=== PATIENT | male | born 1955 | race Caucasian/White ===

== ENCOUNTER 2019-09-09 05:11 | Inpatient (IN) ==
[2019-08-22 13:03] LABS: HEMATOCRIT 43.4 % (42.0-52.0); HEMOGLOBIN 15.2 g/dL (14.0-18.0); MCH 30.6 PG (27-31); MCV 87.5 FL (81-99); MPV 10.3 FL (7.4-10.4); RBC 4.96 XMIL (4.7-6.1); RDW 13.3 % (11.5-14.5); WBC 6.53 X1000 (4.8-10.8)
--- NOTE | 2019-08-22 13:05 | EKG Report ---
Test Performed on : 08/22/2019 12:49:41 PM Test Reason : PAT Blood Pressure : / mmHG Vent. Rate : 069 BPM Atrial Rate : 069 BPM P-R Int : 168 ms QRS Dur : 108 ms QT Int : 432 ms P-R-T Axes : 069 052 063 degrees QTc Int : 462 ms Normal sinus rhythm. Normal ECG When compared with ECG of 30-JAN-2018 13:46, premature ventricular complexes. are no longer present Confirmed by Jackson MARTINI, Abhinav Childers ([id number]) on 08/26/2019 9:25:30 AM
[2019-08-22 13:53] LABS: AGAP 11; BUN 17 mg/dL (8-22); CALCIUM 9.4 mg/dL (8.8-10.2); CHLORIDE 99 mmol/L (98-107); COSMO 290; CREATININE 1.1 mg/dL (0.7-1.2); ESTIMATED GFR > 60; GLUCOSE 296 mg/dL (70-104); POTASSIUM 4.5 mmol/L (3.5-5.1); SODIUM 139 mmol/L (136-145); TCO2 29 mmol/L (25-35)
[2019-09-09] MEDS ORDERED: KEFZOL 1 GM/D5W 2 GM/100 ML IVPB ONE (05:45)
[2019-09-09] MEDS ORDERED: LR 1,000 ML ONE (05:45)
[2019-09-09] MEDS ORDERED: FENTANYL ONE (06:18)
[2019-09-09] MEDS ORDERED: VERSED ONE (06:18)
[2019-09-09] MEDS ORDERED: DIPRIVAN 1% ONE (06:18)
[2019-09-09] MEDS ORDERED: KEFZOL ONE (06:37)
[2019-09-09] MEDS ORDERED: HEPARIN ONE ×2 (06:37→06:38)
[2019-09-09] MEDS ORDERED: MARCAINE 0.25% PF ONE (06:38)
[2019-09-09] MEDS ORDERED: NS 2,000 ML ONE (06:38)
[2019-09-09] MEDS ORDERED: REGLAN ONE (06:41)
[2019-09-09] MEDS ORDERED: PEPCID ONE (06:41)
[2019-09-09] MEDS ORDERED: NITROGLYCERIN ONE (06:42)
[2019-09-09] MEDS ORDERED: NITROGLYCERIN 50 MG/D5W 50 MG/250 ML IV.SOLN ONE (06:45)
[2019-09-09] MEDS ORDERED: CARDENE 40 MG/NS 40 MG/200 ML PIGGYBACK IV ONE (07:00)
[2019-09-09] MEDS ORDERED: NEO-SYNEPHRINE ONE (08:07)
[2019-09-09] MEDS ORDERED: XYLOCAINE-MPF 2% ONE (08:07)
[2019-09-09] MEDS ORDERED: QUELICIN (DOSE) ONE (08:07)
[2019-09-09] MEDS ORDERED: HEPARIN (DOSE) ONE (08:07)
[2019-09-09] MEDS ORDERED: ZEMURON ONE (08:07)
[2019-09-09] MEDS ORDERED: ROBINUL ONE (08:07)
[2019-09-09] MEDS ORDERED: OFIRMEV 1000 MG/ISOTONIC SOLN 1,000 MG/100 ML BOTTLE ONE (08:07)
[2019-09-09] MEDS ORDERED: SODIUM CHLORIDE 0.9% 10 ML ONE (08:07)
[2019-09-09] MEDS ORDERED: ZOFRAN ONE (08:07)
[2019-09-09] MEDS ORDERED: NEOSTIGMINE ONE (08:08)
[2019-09-09] MEDS ORDERED: LABETALOL (DOSE) ONE ×2 (08:40→09:23)
[2019-09-09 09:31] LABS: URINE SOURCE CATH
[2019-09-09 09:36] LABS: BILIRUBIN URINE NEGATIVE (NEGATIVE); BLOOD URINE NEGATIVE (NEGATIVE); COLOR YELLOW; GLUCOSE URINE NEGATIVE (NEGATIVE); KETONE URINE NEGATIVE (NEGATIVE); LEUKOCYTES URINE NEGATIVE (NEGATIVE); NITRITE URINE NEGATIVE (NEGATIVE); PH URINE 5.5; PROTEIN URINE 30 mg/dL (NEGATIVE); SP GRAVITY URINE 1.031; TURBIDITY URINE CLEAR (CLEAR); UROBILINOGEN URINE NORMAL (NORMAL)
[2019-09-09 09:38] LABS: UR EPITHELIAL CELLS <10 /HPF (<10); URINE BACTERIA NEGATIVE /HPF; URINE RBC <10 /HPF (<10); URINE WBC <10 /HPF (<10)
[2019-09-09] MEDS ORDERED: NS 1,000 ML ONE (10:01)
--- NOTE | 2019-09-09 10:14 | OPERATIVE NOTE ---
PROCEDURE DATE: 09/09/2019 PROCEDURE PERFORMED: Endovascular repair of infrarenal abdominal aortic aneurysm using a [place] excluder graft. SURGEON: Arsen Mitchell M.D. CERAMIC ENGINEERING PROFESSOR: FREDDIE Meadows. PREOPERATIVE DIAGNOSIS: A 5.5 cm infrarenal abdominal aortic aneurysm. POSTOPERATIVE DIAGNOSIS: A 5.5 cm infrarenal abdominal aortic aneurysm. DESCRIPTION OF PROCEDURE: After satisfactory general endotracheal anesthesia, the abdomen and thighs were prepped and draped in a sterile fashion. An Ioban drape was used, and 2 grams of Kefzol were given prophylactically preoperatively. We marked the skin just below the inguinal crease on each side. We then anesthetized the skin with 0.25 Marcaine plain. We incised the skin, began on the left side. We carried our incision through the fat, all the way down to the inguinal ligament. We then exposed the common femoral artery, and surrounded it with an umbilical tape proximally and a vessel loop distally. We did the same thing on the right side as well. Then, 8000 units of heparin were given. We then introduced a 6-[place] sheath into the right common femoral in Seldinger technique. We passed a Glidewire into the aorta, followed by a pigtail catheter. On the left side, we then introduced again, a 6-[place] sheath, followed by a Glidewire, followed by a Berenstein catheter, followed by a Gail wire. We then shot the aortogram, and decided that a 31 x 14.5 x 17 device would be satisfactory, and we decided to put it up the left side. We placed our 18-[place] sheath up the left side, and put a 16-[place] sheath up the right side. We introduced the 31 x 14.5 x 17, and replaced our pigtail catheter through the right side, and shot a picture to ching the renals, and then opened the proximal portion of the main body of the graft right below the renals. We had oriented it for the gate to be left lateral. We then placed our Glidewire, switched to a Berenstein catheter, and then proceeded to cannulate the gate using various angles to identify the opening to the gate, and then we did cannulate the gate, and switched to a pigtail, twirled the pigtail in the proximal end to prove we were inside the graft. We then switched back to our Gail wire, and introduced the limb of the graft through the right side. Before we did that, we shot a retrograde shot to measure from the gate down to the internal iliac on the right, and we decided that a 27 x 12 flared limb would work, so we introduced it up to the top of the gate, and then opened it, and it came appropriate right down to the orifice to the internal iliac on the right. Because we used a 17 length for the left side, we had to place a little proximal pressure on the residual limb of the main body in order to gather it up to not overlap the internal on the left side. Upon completion of that, to be certain we did not push the graft up any, we replaced our pigtail, shot another run, and it was satisfactory, had not repositioned the proximal end of the graft whatsoever. We then put our aortic balloon up the right side, and ballooned our aorta. We used a 14 x 4 balloon on the left side, and used the aortic balloon and the 14 x 4 balloon at the gate level, then the bifurcation, and then the proximal common iliac, and then at the very tip of the graft in the common iliac. After we had ballooned the graft, we then replaced our pigtail, and shot a final run. This showed no leaks, and both internal iliacs were patent. Both renals were patent. We were satisfied with the result. We then removed our devices, clamped off the femorals, and closed both femoral arteriotomies with 5-0 running stitches. Ultrafoam was used to help achieve complete hemostasis of the needle holes. We irrigated with Kefzol. We then closed with some interrupted 3-0 Polysorb. We used it to close the tissue over the common femoral arteries, and then closed the subcutaneous tissue with a running 2-0 Polysorb. Once again, injected 0.25 Marcaine without epinephrine, and then closed the skin of each incision with 4-0 Polysorb subcuticular stitches. Telfa and sterile OpSites were applied. He tolerated it well. Estimated blood loss was over 100 mL. We used 130 mL of contrast. He was sent to the recovery room in satisfactory condition. cc: Arsen Mitchell MD
[2019-09-09] MEDS ORDERED: ZOFRAN IV PRN (11:41)
[2019-09-09] MEDS ORDERED: DILAUDID IV PRN (11:41)
[2019-09-09] MEDS ORDERED: NORCO-10 PO PRN (11:41)
[2019-09-09] MEDS: NS 1,000 ML IV SCH ×2 (12:00→20:20)
[2019-09-09] MEDS ORDERED: KEFZOL 1 GM/D5W 1 GM/50 ML IVPB IV ONE (17:51)
[2019-09-09] MEDS: ULTRAM PO PRN (18:28)
--- NOTE | 2019-09-09 20:02 | GENERAL SURGERY PROGRESS NOTE ---
DATE: 09/09/2019 TIME: 5:30 p.m. His heart rate is 80, blood pressure 140/80, saturation is 95. Lungs are clear. Bandages are dry. He is awake and alert. He has palpable pedal pulses. PLAN: He does not want narcotics for pain relief, so we will give him Ultram. Will feed him some solid food. Check his labs in the morning. Hopefully move him out tomorrow if everything continues okay. cc: Arsen Mitchell MD
[2019-09-09] MEDS: PRILOSEC PO SCH (20:18)
[2019-09-09] MEDS: RELAFEN PO SCH (20:19)
[2019-09-09] MEDS: GLUCOPHAGE XR PO SCH (20:19)
[2019-09-09] MEDS: NEURONTIN PO SCH (20:19)
[2019-09-10] MEDS: NS 1,000 ML IV SCH (00:07)
[2019-09-10] MEDS ORDERED: KEFZOL 1 GM/D5W 1 GM/50 ML IVPB IV ONE (02:00)
[2019-09-10 07:58] LABS: BASO# 0.01 X1000 (0.0-0.2); BASO% 0.1 % (0.0-0.8); EOS# 0.14 X1000 (0.0-0.7); EOS% 1.5 % (0.0-10.0); HEMATOCRIT 40.3 % (42.0-52.0); HEMOGLOBIN 13.8 g/dL (14.0-18.0); IMM GRAN# 0.02 X1000 (0.0-0.04); IMM GRAN% 0.2 % (0.0-0.5); LYMPH# 1.14 X1000 (1.2-3.4); LYMPH% 11.8 % (20.5-51.1); MCH 30.4 PG (27-31); MCHC 34.2 g/dL (33-37); MCV 88.8 FL (81-99); MONO% 8.3 % (1.7-9.3); MPV 10.1 FL (7.4-10.4); NEUT# 7.54 X1000 (1.4-6.5); NEUT% 78.1 % (42.2-75.2); PLT 148 X1000 (130-400); RBC 4.54 XMIL (4.7-6.1); WBC 9.65 X1000 (4.8-10.8)
[2019-09-10] MEDS ORDERED: NS 1,000 ML IV SCH (08:11)
[2019-09-10 08:21] LABS: AGAP 11; BUN 11 mg/dL (8-22); CALCIUM 8.5 mg/dL (8.8-10.2); CHLORIDE 100 mmol/L (98-107); COSMO 278; CREATININE 0.8 mg/dL (0.7-1.2); ESTIMATED GFR > 60; GLUCOSE 186 mg/dL (70-104); POTASSIUM 4.2 mmol/L (3.5-5.1); SODIUM 137 mmol/L (136-145); TCO2 26 mmol/L (25-35)
--- NOTE | 2019-09-10 08:28 | GENERAL SURGERY PROGRESS NOTE ---
DATE: 09/10/2019 SUBJECTIVE: He is postop day 1 after an endovascular aneurysm repair. This morning, he is awake and alert and is comfortable. Says he slept for 6 hours. OBJECTIVE: His heart rate is 80, blood pressure 138/73. His bandages are dry. His lungs are clear. Feet are warm. His urine output has been good. LABORATORY DATA: White count 9600, hemoglobin 13.8, hematocrit 40. PLAN: The plan is to remove his Heart. We will reduce his IV rate. Will transfer him up to a regular room. cc: Arsen Mitchell MD
[2019-09-10] MEDS: UROCIT-K PO SCH (08:59)
[2019-09-10] MEDS: COZAAR PO SCH (08:59)
[2019-09-10] MEDS: ZIAC 5/6.25 MG PO SCH (08:59)
[2019-09-10] MEDS: FLOMAX PO SCH (08:59)
[2019-09-10] MEDS: NEURONTIN PO SCH ×2 (09:00→20:51)
[2019-09-10] MEDS: ZYRTEC PO SCH (09:00)
[2019-09-10] MEDS: RELAFEN PO SCH ×2 (09:00→20:51)
[2019-09-10] MEDS: GLUCOPHAGE XR PO SCH ×2 (09:00→20:52)
[2019-09-10] MEDS: PROSCAR PO SCH (09:00)
[2019-09-10] MEDS: ULTRAM PO PRN (09:48)
[2019-09-10] MEDS ORDERED: CARDIZEM IV ONE (14:38)
[2019-09-10] MEDS ORDERED: MAGNESIUM SULFATE 2 GM/S.W.I. 2 GM/50 ML IVPB IV ONE (14:39)
[2019-09-10] MEDS ORDERED: LOPRESSOR IV PRN (14:39)
[2019-09-10] MEDS ORDERED: CARDIZEM 100 MG/NS 100 MG/100 ML IVPB IV SCH (14:45)
--- NOTE | 2019-09-10 16:05 | EKG Report ---
Test Performed on : 09/10/2019 1:50:00 PM Test Reason : ICU Blood Pressure : / mmHG Vent. Rate : 118 BPM Atrial Rate : 077 BPM P-R Int : 000 ms QRS Dur : 108 ms QT Int : 354 ms P-R-T Axes : 000 044 -12 degrees QTc Int : 496 ms Atrial fibrillation. with rapid ventricular response. Cannot rule out Inferior infarct , age undetermined Abnormal ECG When compared with ECG of 22-AUG-2019 12:49, Atrial fibrillation. has replaced Sinus rhythm. Vent. rate has increased BY 49 BPM Confirmed by Jackson MARTINI, Abhinav Childers ([id number]) on 09/12/2019 2:33:32 PM
[2019-09-10] MEDS: LOVENOX SUBQ SCH (17:15)
--- NOTE | 2019-09-10 19:18 | CARDIOLOGY CONSULTATION ---
DATE: 09/10/2019 CHIEF COMPLAINT: Patient was admitted for endovascular repair of an infrarenal abdominal aortic aneurysm per Dr. Mitchell. HISTORY OF PRESENT ILLNESS: Mr. Boyer is a 64-year-old, white male, with a history of diabetes, hypertension, hyperlipidemia, who came in for the above-mentioned procedure which was performed on the . He tolerated that well, and then at 12:30 p.m. today, he converted into atrial fibrillation with rapid ventricular response. The patient reports he has no history of this before. He denies any current pain issues. He is having some mild palpitations, but otherwise is asymptomatic. Again, no previous history of this. He denies any orthopnea. PAST MEDICAL HISTORY: 1. Significant for hypertension. 2. Diabetes. 3. Hyperlipidemia. 4. BPH. 5. Arthritis. SOCIAL HISTORY: He quit smoking more than 10 years ago. FAMILY HISTORY: Significant for hypertension. REVIEW OF SYSTEMS: A 10-system review of systems is negative, except for those things mentioned in the HPI. PHYSICAL EXAMINATION: vital signs: Afebrile. Current heart rates are in the 120s approximately. His blood pressure is 124/81. General: No acute distress. HEENT: Oropharynx moist. Normal dentition. Eye examination shows pink conjunctivae, white sclerae. Neck: No obvious thyromegaly or thyroid tenderness. Cardiovascular: He sounds to be in an irregularly irregular rate. He has no obvious murmurs. He has no S3. He has no lower extremity edema. Chest: Sounds clear bilaterally. He has no increased work of breathing. Abdomen: Soft, nontender, nondistended. He has no obvious organomegaly. Skin: Warm and dry throughout without any rashes. Neurological: He is moving all extremities well. No lateralizing deficits. Pertinent data: White count is 9.6, hematocrit is 40, platelet count is 148,000. His sodium is 137, potassium is 4.2, his BUN is 11, creatinine 0.8, magnesium level 1.6. TSH is currently pending. Echo is currently pending. ASSESSMENT: Mr. Boyer is a 64-year-old gentleman with a history of abdominal aortic aneurysm who had repair via an endovascular graft. He converted to atrial fibrillation at 12:30 p.m. today. PLAN: We will discuss with the surgeon regarding placing him on Lovenox. If we can place him on anticoagulation, we will perform cardioversion in the morning if he remains in atrial fibrillation. In the meantime, we will place him on a diltiazem infusion, replete his magnesium, and check a TSH as well as an echo. cc: MD Arsen Higuera MD
[2019-09-10] MEDS: PRILOSEC PO SCH (20:51)
[2019-09-10] MEDS: ZOCOR PO SCH (20:52)
[2019-09-11] MEDS: LOVENOX SUBQ SCH (06:04)
--- NOTE | 2019-09-11 08:15 | EKG Report ---
Test Performed on : 09/11/2019 06:33:38 AM Test Reason : afib Blood Pressure : / mmHG Vent. Rate : 082 BPM Atrial Rate : 082 BPM P-R Int : 158 ms QRS Dur : 106 ms QT Int : 446 ms P-R-T Axes : 053 056 071 degrees QTc Int : 521 ms Normal sinus rhythm. Prolonged QT Abnormal ECG When compared with ECG of 10-SEP-2019 13:50, (Unconfirmed) Sinus rhythm. has replaced Atrial fibrillation. Minimal criteria for Inferior infarct are no longer present Nonspecific T wave abnormality no longer evident in Inferior leads Confirmed by Jackson MARTINI, Abhinav Cihlders ([id number]) on 09/12/2019 2:33:48 PM
[2019-09-11 08:37] LABS: BASO# 0.02 X1000 (0.0-0.2); BASO% 0.3 % (0.0-0.8); EOS# 0.22 X1000 (0.0-0.7); EOS% 2.8 % (0.0-10.0); HEMATOCRIT 39.9 % (42.0-52.0); HEMOGLOBIN 13.6 g/dL (14.0-18.0); IMM GRAN# 0.02 X1000 (0.0-0.04); IMM GRAN% 0.3 % (0.0-0.5); LYMPH# 1.03 X1000 (1.2-3.4); LYMPH% 13.3 % (20.5-51.1); MCH 30.5 PG (27-31); MCHC 34.1 g/dL (33-37); MCV 89.5 FL (81-99); MONO# 0.74 X1000 (0.11-0.59); MONO% 9.5 % (1.7-9.3); MPV 10.1 FL (7.4-10.4); NEUT# 5.72 X1000 (1.4-6.5); NEUT% 73.8 % (42.2-75.2); PLT 140 X1000 (130-400); RBC 4.46 XMIL (4.7-6.1); RDW 13.1 % (11.5-14.5); WBC 7.75 X1000 (4.8-10.8)
--- NOTE | 2019-09-11 09:02 | ECHO REPORT ---
ORDER DATE: 09/10/2019 MEASUREMENTS: Septal thickness 1.1, left ventricular internal diameter in diastole 5.7, posterior wall thickness 0.9, aortic root 3.8, left atrium 4.0. SUMMARY: 1. Fair quality study. Intravenous echo contrast agent Optison was utilized to enhance endocardial definition. 1. Mild to moderate aortic valve sclerosis demonstrated involving trileaflet aortic valve. Aortic valve opening appears to be adequate. The peak gradient across aortic valve is approximately 10 mmHg. Mild mitral annular calcifications demonstrated with trace mitral regurgitation. Tricuspid valve was without evidence of structural abnormality while pulmonic valve is not well demonstrated. There is trace tricuspid regurgitation. Aortic root is normal size. 2. Normal left ventricular dimensions demonstrated. Estimated left ejection fraction appears to be at least 55%. No regional wall motion abnormalities are evident. Left atrium is borderline enlarged. Right atrium and right ventricle are normal size with grossly preserved right ventricular systolic function. 3. No pericardial effusion. 4. Appearance of inferior vena cava suggests normal central venous pressure. CONCLUSIONS: 1. Mild to moderate aortic valve sclerosis without stenosis. 2. Mild mitral annular calcification. 3. Estimated left ventricular ejection fraction at least 55%. 4. Borderline left atrial enlargement. cc: MD Yanick Mccoy MD Robert C. Walker, MD
[2019-09-11] MEDS: ZYRTEC PO SCH (09:06)
[2019-09-11] MEDS: FLOMAX PO SCH (09:06)
[2019-09-11] MEDS: RELAFEN PO SCH ×2 (09:06→20:13)
[2019-09-11] MEDS: UROCIT-K PO SCH (09:06)
[2019-09-11] MEDS: COZAAR PO SCH (09:07)
[2019-09-11] MEDS: NEURONTIN PO SCH ×2 (09:07→20:13)
[2019-09-11] MEDS: GLUCOPHAGE XR PO SCH ×2 (09:07→20:12)
[2019-09-11] MEDS: ZIAC 5/6.25 MG PO SCH (09:07)
[2019-09-11] MEDS: PROSCAR PO SCH (09:07)
[2019-09-11 09:44] LABS: AGAP 10; BUN 12 mg/dL (8-22); CALCIUM 8.8 mg/dL (8.8-10.2); CHLORIDE 102 mmol/L (98-107); COSMO 284; CREATININE 0.9 mg/dL (0.7-1.2); ESTIMATED GFR > 60; GLUCOSE 188 mg/dL (70-104); POTASSIUM 4.1 mmol/L (3.5-5.1); SODIUM 140 mmol/L (136-145); TCO2 28 mmol/L (25-35)
[2019-09-11] MEDS: ZOCOR PO SCH (20:11)
[2019-09-11] MEDS: PRILOSEC PO SCH (20:12)
[2019-09-11] MEDS: ELIQUIS PO SCH (20:13)
--- NOTE | 2019-09-11 20:15 | CARDIOLOGY PROGRESS NOTE ---
DATE: 09/11/2019 SUBJECTIVE: Mr. Boyer currently is in sinus rhythm. He converted at some point overnight. PHYSICAL EXAMINATION: vital signs: Afebrile. Heart rate 84, blood pressure 129/86. General: No acute distress. Cardiovascular: Regular rate and rhythm with no murmurs. He has no S3. He has no lower extremity edema. Chest: Clear bilaterally. No increased work of breathing. Abdomen: Soft, nontender. PERTINENT DATA: His echocardiogram shows a preserved ejection fraction with aortic sclerosis. Laboratory data shows a white count of 7.7, hematocrit of 39, platelet count is 140,000. Sodium 140, potassium is 4.1, BUN 12, creatinine 0.9. TSH is low at 0.20. ASSESSMENT: Mr. Boyer is a 64-year-old gentleman who presented for elective abdominal aortic aneurysm repair. PLAN: He has converted back into sinus. We will stop the Lovenox and place him on Eliquis. From my standpoint, he can be discharged when stable from Dr. Mitchell's standpoint. I will check a free T4 in the morning, given his TSH being low. cc: MD Arsen Higuera MD
[2019-09-12 08:02] VITALS: BP 154/89
[2019-09-12] MEDS: PROSCAR PO SCH (08:26)
[2019-09-12] MEDS: NEURONTIN PO SCH (08:26)
[2019-09-12] MEDS: GLUCOPHAGE XR PO SCH (08:26)
[2019-09-12] MEDS: FLOMAX PO SCH (08:26)
[2019-09-12] MEDS: RELAFEN PO SCH (08:26)
[2019-09-12] MEDS: COZAAR PO SCH (08:26)
[2019-09-12] MEDS: ELIQUIS PO SCH (08:26)
[2019-09-12] MEDS: ZIAC 5/6.25 MG PO SCH (08:26)
[2019-09-12] MEDS: ZYRTEC PO SCH (08:26)
[2019-09-12] MEDS: UROCIT-K PO SCH (08:27)
--- NOTE | 2019-09-12 12:24 | GENERAL SURGERY PROGRESS NOTE ---
DATE: 09/12/2019 SUBJECTIVE: Mr. Boyer is now 3 days after his endovascular aneurysm repair complicated by a bout of atrial fibrillation with RVR. He is now in sinus rhythm at a rate of 81. He is eating satisfactorily. His wounds look fine. PLAN: The plan is to discharge him today. We discussed wound care activity. He will return to see me in the office in a week. We will discharge him home on his usual medicines with the addition of Eliquis in view of his atrial fibrillation. He will return to the office in a week. cc: Arsen Mitchell MD
== END 2019-09-12 09:18 | disposition home or self-care (01) | DRG 269 ==
LOC: SURHOLD 05:11 → ICU 11:39 → 4N 09-11 21:36
PROVIDERS: ADMIT Surgery; ATTEND Surgery